=== PATIENT | female | born 1935 | race Two or more races ===

== ENCOUNTER 2021-02-14 14:03 | Emergency (ER) | payer OTHER ==
[~2021-02-14] VITALS: Ht 160 cm; Wt 72.6 kg
[2021-02-14] MEDS ORDERED: LOSARTAN POTASSI1 GM (14:46)
[2021-02-14] MEDS ORDERED: LEVOTHYROXINE25 MCG (14:47)
== END 2021-02-14 18:04 | disposition home or self-care (01) ==
LOC: ER 14:03
DX: G89.11 Acute pain due to trauma (principal); M54.59 Other low back pain; M25.552 Pain in left hip